=== PATIENT | female | born 1975 | race Caucasian/White ===

== ENCOUNTER 2018-07-23 09:35 | Emergency (ER) | payer OTHER ==
[~2018-07-23] VITALS: Ht 157.5 cm; Wt 65.8 kg
== END 2018-07-23 14:20 | disposition home or self-care (01) ==
LOC: ER 09:35
DX: M13.89 Other specified arthritis, multiple sites (principal)

== ENCOUNTER 2021-07-07 09:23 | Outpatient (CLI) | payer OTHER | END 2021-07-07 09:27 | disposition home or self-care (01) | LOC: SONOGRAMA 09:23 | PROVIDERS: ATTEND Pathology Anatomic Pathology & Clinical Pathology | DX: E04.1 Nontoxic single thyroid nodule (principal) ==